=== PATIENT | male | born 1955 | race Caucasian/White ===

== ENCOUNTER 2016-09-13 17:28 | Emergency (ER) | payer SELFPAY ==
--- NOTE | 2016-09-13 18:54 | ED NURSING NOTES ---
Clinical Report - Nurses [facility] [place] [address] 09/13/2016 17:28 Patient: ILIA DALEY TRIAGE Triage time 1729 PM. Acuity: LEVEL 4. Chief Complaint: (Clear to book). Alert. No acute distress. SEPSIS SCREEN: Sepsis Screen. Negative (no infection suspected/documented). LORETTA COMA SCORE: Loretta Coma Scale: 15- eyes open spontaneously (4); best verbal response- oriented x 4 (5); best motor response- obeys commands (6). --17:37 Geovanna Brizuela R.N. 17:29 09/13/16. BP: 148/92. HR: 72. RR: 18. O2 saturation: 97% on room air. Temp: 98.5 F (oral). Pain level now: 0/10. --17:37 Geovanna Brizuela R.N. Weight: 72 kg stated. Height/Length: 66 inches Per Patient. BMI: 25.6. --17:32 Geovanna Brizuela R.N. Medications None. --17:31 Geovanna Brizuela R.N. Medication/allergy information source: the patient. --17:37 Geovanna Brizuela R.N. Allergies No Known Drug Allergy. --17:31 Geovanna Brizuela R.N. History Historian: patient. Arrived in police custody. This started today. No fever, weakness, cough, difficulty breathing or skin rash. Denies muscle aches. Treatment [employer] ATTORNEY: None. SOCIAL HX: Heavy tobacco smoker (cigarette)- less than 1 pack per day. Occasional alcohol use; consumes two liquor. No drug use. No infectious disease exposure. ABUSE ASSESSMENT: No report of abuse. SELF HARM ASSESSMENT: A self harm assessment was performed. The patient answered "no" to the question "Do you have thoughts of harming or killing yourself?" and "Have you recently had thoughts about harming or killing others?". FALL RISK ASSESSMENT: Fall risk assessment completed. No fall risk identified. NUTRITIONAL RISK ASSESSMENT: The nutritional risk assessment revealed no deficiencies. FUNCTIONAL ASSESSMENT: Functional assessment: no impairments noted. LEARNING NEEDS ASSESSMENT: The learning needs assessment revealed no barriers. SKIN INTEGRITY ASSESSMENT: Skin integrity risk assessment completed. No skin integrity risk identified. --17:37 Geovanna Brizuela R.N. PROBLEMS: no known problems. ADDITIONAL SURGERIES: no known surgeries. Interventions ID band on patient. --17:37 Geovanna Brizuela R.N. PHYSICAL ASSESSMENT Ambulatory to room. GENERAL / NEURO / PSYCH: Alert. Oriented X 4. Appears in no acute distress. HEENT: No facial asymmetry noted. Mucous membranes are pink. RESPIRATORY: Respirations not labored. Chest nontender. Breath sounds within normal limits. CVS: Capillary refill less than 2 seconds. Pulses within normal limits. GI / : Abdomen soft and nontender and normal bowel sounds. SKIN: Skin intact. Skin is warm. Normal skin turgor. --17:39 Geovanna Brizuela R.N. NURSING PROGRESS NOTES The initial plan of care for this patient has been created This plan of care was discussed with the patient. Reassurance given. Patient identifiers checked. Call light placed in reach. Side rails up x 1. Bed placed in lowest position. Brakes of bed on. Brakes of chair on. ( Pt Maori speaking, able to communicate with RN Chata (speaks hungarian) aware of situation.). --17:40 Geovanna Brizuela R.N. ( breathalyzer - .229). --18:05 Lara Lange ER Tech1. DISPOSITION / DISCHARGE 18:59 09/13/16. BP: 150/81. HR: 62. RR: 20. O2 saturation: 95%. Temp: 98.2 F. Pain level now: 0/10. --18:59 Jazzmine Yepez R.N. Locked/Released at 09/20/2016 15:05 by Geovanna Brizuela R.N.
--- NOTE | 2016-09-13 18:54 | ED NURSING NOTES ---
Clinical Report - Nurses [facility] [place] [address] 09/13/2016 17:28 Patient: ILIA DALEY TRIAGE Triage time 1729 PM. Acuity: LEVEL 4. Chief Complaint: (Clear to book). Alert. No acute distress. SEPSIS SCREEN: Sepsis Screen. Negative (no infection suspected/documented). LORETTA COMA SCORE: Loretta Coma Scale: 15- eyes open spontaneously (4); best verbal response- oriented x 4 (5); best motor response- obeys commands (6). --17:37 Geovanna Brizuela R.N. 17:29 09/13/16. BP: 148/92. HR: 72. RR: 18. O2 saturation: 97% on room air. Temp: 98.5 F (oral). Pain level now: 0/10. --17:37 Geovanna Brizuela R.N. Weight: 72 kg stated. Height/Length: 66 inches Per Patient. BMI: 25.6. --17:32 Geovanna Brizuela R.N. Medications None. --17:31 Geovanna Brizuela R.N. Medication/allergy information source: the patient. --17:37 Geovanna Brizuela R.N. Allergies No Known Drug Allergy. --17:31 Geovanna Brizuela R.N. History Historian: patient. Arrived in police custody. This started today. No fever, weakness, cough, difficulty breathing or skin rash. Denies muscle aches. Treatment PATIENT ACCESS: None. SOCIAL HX: Heavy tobacco smoker (cigarette)- less than 1 pack per day. Occasional alcohol use; consumes two liquor. No drug use. No infectious disease exposure. ABUSE ASSESSMENT: No report of abuse. SELF HARM ASSESSMENT: A self harm assessment was performed. The patient answered "no" to the question "Do you have thoughts of harming or killing yourself?" and "Have you recently had thoughts about harming or killing others?". FALL RISK ASSESSMENT: Fall risk assessment completed. No fall risk identified. NUTRITIONAL RISK ASSESSMENT: The nutritional risk assessment revealed no deficiencies. FUNCTIONAL ASSESSMENT: Functional assessment: no impairments noted. LEARNING NEEDS ASSESSMENT: The learning needs assessment revealed no barriers. SKIN INTEGRITY ASSESSMENT: Skin integrity risk assessment completed. No skin integrity risk identified. --17:37 Geovanna Brizuela R.N. PROBLEMS: no known problems. ADDITIONAL SURGERIES: no known surgeries. Interventions ID band on patient. --17:37 Geovanna Brizuela R.N. PHYSICAL ASSESSMENT Ambulatory to room. GENERAL / NEURO / PSYCH: Alert. Oriented X 4. Appears in no acute distress. HEENT: No facial asymmetry noted. Mucous membranes are pink. RESPIRATORY: Respirations not labored. Chest nontender. Breath sounds within normal limits. CVS: Capillary refill less than 2 seconds. Pulses within normal limits. GI / : Abdomen soft and nontender and normal bowel sounds. SKIN: Skin intact. Skin is warm. Normal skin turgor. --17:39 Geovanna Brizuela R.N. NURSING PROGRESS NOTES The initial plan of care for this patient has been created This plan of care was discussed with the patient. Reassurance given. Patient identifiers checked. Call light placed in reach. Side rails up x 1. Bed placed in lowest position. Brakes of bed on. Brakes of chair on. ( Pt Azeri speaking, able to communicate with RN Chata (speaks samoan) aware of situation.). --17:40 Geovanna Brizuela R.N. ( breathalyzer - .229). --18:05 Lara Lange ER Tech1. DISPOSITION / DISCHARGE 18:59 09/13/16. BP: 150/81. HR: 62. RR: 20. O2 saturation: 95%. Temp: 98.2 F. Pain level now: 0/10. --18:59 Jazzmine Yepez R.N. Locked/Released at 09/20/2016 15:05 by Geovanna Brizuela R.N.
--- NOTE | 2016-09-13 18:54 | ED ORDER SUMMARY ---
..... Patient: ILIA DALEY OrderSheet [facility] VisitID: [id number] [address] [place] [address] 60y, M Registration Date/Time: 09/13/2016 ORDER SHEET Weight: 72 kg (stated) Allergies: No Known Drug Allergy GENERAL ORDERS: Breathalyzer (17:58 09/13/2016 HBivens A.R.N.P.) (Ack 18:00 LNations ER Tech1) (18:02 NHouse ER Tech1) (18:04 LNations ER Tech1) - (needs blood draw) (17:58 09/13/2016 HBivens A.R.N.P.) (Ack 18:02 NHouse ER Tech1) (15:04 EHassan R.N.) MEDICATION ORDERS: IV FLUIDS: ORDER SHEET NOTES: [Electronically signed by Patricia Maya.R.N.PDavid (21:32 09/13/2016)] [Electronically signed by Geovanna Brizuela R.N. (15:05 09/20/2016)] [Electronically locked/signed by Geovanna Brizuela R.N. (15:09/20/2016)]
--- NOTE | 2016-09-13 18:54 | ED CLINICAL REPORT ---
Clinical Report - Physicians/Mid Levels [facility] [address] [place] [address] 09/13/2016 17:28 Patient: ILIA DALEY Time Seen: 1748. Arrived- In handcuffs. Police present. Historian- patient. HISTORY OF PRESENT ILLNESS Chief Complaint: ( clear to book). This started just prior to arrival and is still present. (pt was pulled over for driving intoxicated, pt denies any pain, injury, illness or issues). Similar symptoms previously: None. Recent medical care: Not recently seen/assessed. REVIEW OF SYSTEMS All systems otherwise negative, except as recorded above. PAST HISTORY Negative. SOCIAL HISTORY Heavy tobacco smoker. Regular alcohol use. No drug use. No recent travel. Is a local resident. FAMILY HISTORY Negative. ADDITIONAL NOTES The nursing notes have been reviewed with agreement regarding the chief complaint, HPI, ROS, PMH and patient medications and allergies. PHYSICAL EXAM Vital Signs: 09/13/2016 17:29 BP: 148/92. HR: 72. RR: 18. O2 saturation: 97%. Temp: 98.5 F. Pain level now: 0/10. Have been reviewed as normal and appear to be correct. Appearance: Alert. No acute distress. (strong etoh breath). Eyes: Pupils equal, round and reactive to light. Eyes normal inspection. Neck: Normal inspection. Neck supple. CVS: Normal heart rate and rhythm. Heart sounds normal. Pulses normal. Respiratory: No respiratory distress. Breath sounds normal. Chest nontender. Abdomen: No visible injury. Soft and nontender. Back: Normal inspection. Skin: Skin warm and dry. Normal skin color. No rash. Normal skin turgor. Extremities: Extremities exhibit normal ROM. No lower extremity edema. Neuro: Oriented X 3. No motor deficit. No sensory deficit. PROGRESS AND PROCEDURES Course of Care: ( breathalyzer - .229). --18:05 Lara Lange ER Tech1. Patient counseled in person regarding the patient's stable condition and diagnosis. 18:54. Differential Diagnosis: Other possible considerations: substance abuse, alcohol intoxication. Above considerations are based on history and physical exam. Differential diagnosis was discussed with patient. Disposition: Discharged home in good and improved condition (18:54). Condition: good and stable. CLINICAL IMPRESSION Normal exam upon presentation, while in the ED and at discharge. Uncomplicated alcohol intoxication. No alcohol intoxication with delirium or alcohol dependence. INSTRUCTIONS (patient is medically cleared to go with police to half-way). Warnings: GENERAL WARNINGS: Return or contact your physician immediately if your condition worsens or changes unexpectedly, if not improving as expected, or if other problems arise. Specifically return if problem worsens. Follow-up: Follow up with your doctor in about one week as needed. Call for an appointment. Summary of care provided to patient. Understanding of the discharge instructions verbalized by patient. (Electronically signed by Patricia Maya A.R.N.P. 09/13/2016 21:32)
--- NOTE | 2016-09-13 18:54 | ED ORDER SUMMARY ---
..... Patient: ILIA DALEY OrderSheet [facility] VisitID: [id number] [address] [place] [address] 60y, M Registration Date/Time: 09/13/2016 ORDER SHEET Weight: 72 kg (stated) Allergies: No Known Drug Allergy GENERAL ORDERS: Breathalyzer (17:58 09/13/2016 HBivens A.R.N.P.) (Ack 18:00 LNations ER Tech1) (18:02 NHouse ER Tech1) (18:04 LNations ER Tech1) - (needs blood draw) (17:58 09/13/2016 HBivens A.R.N.P.) (Ack 18:02 NHouse ER Tech1) (15:04 EHassan R.N.) MEDICATION ORDERS: IV FLUIDS: ORDER SHEET NOTES: [Electronically signed by Patricia Maya.R.N.PDavid (21:32 09/13/2016)] [Electronically signed by Geovanna Brizuela R.N. (15:05 09/20/2016)] [Electronically locked/signed by Geovanna Brizuela R.N. (15:09/20/2016)]
--- NOTE | 2016-09-13 18:54 | ED CLINICAL REPORT ---
Clinical Report - Physicians/Mid Levels [facility] [address] [place] [address] 09/13/2016 17:28 Patient: ILIA DALEY Time Seen: 1748. Arrived- In handcuffs. Police present. Historian- patient. HISTORY OF PRESENT ILLNESS Chief Complaint: ( clear to book). This started just prior to arrival and is still present. (pt was pulled over for driving intoxicated, pt denies any pain, injury, illness or issues). Similar symptoms previously: None. Recent medical care: Not recently seen/assessed. REVIEW OF SYSTEMS All systems otherwise negative, except as recorded above. PAST HISTORY Negative. SOCIAL HISTORY Heavy tobacco smoker. Regular alcohol use. No drug use. No recent travel. Is a local resident. FAMILY HISTORY Negative. ADDITIONAL NOTES The nursing notes have been reviewed with agreement regarding the chief complaint, HPI, ROS, PMH and patient medications and allergies. PHYSICAL EXAM Vital Signs: 09/13/2016 17:29 BP: 148/92. HR: 72. RR: 18. O2 saturation: 97%. Temp: 98.5 F. Pain level now: 0/10. Have been reviewed as normal and appear to be correct. Appearance: Alert. No acute distress. (strong etoh breath). Eyes: Pupils equal, round and reactive to light. Eyes normal inspection. Neck: Normal inspection. Neck supple. CVS: Normal heart rate and rhythm. Heart sounds normal. Pulses normal. Respiratory: No respiratory distress. Breath sounds normal. Chest nontender. Abdomen: No visible injury. Soft and nontender. Back: Normal inspection. Skin: Skin warm and dry. Normal skin color. No rash. Normal skin turgor. Extremities: Extremities exhibit normal ROM. No lower extremity edema. Neuro: Oriented X 3. No motor deficit. No sensory deficit. PROGRESS AND PROCEDURES Course of Care: ( breathalyzer - .229). --18:05 Lara Lange ER Tech1. Patient counseled in person regarding the patient's stable condition and diagnosis. 18:54. Differential Diagnosis: Other possible considerations: substance abuse, alcohol intoxication. Above considerations are based on history and physical exam. Differential diagnosis was discussed with patient. Disposition: Discharged home in good and improved condition (18:54). Condition: good and stable. CLINICAL IMPRESSION Normal exam upon presentation, while in the ED and at discharge. Uncomplicated alcohol intoxication. No alcohol intoxication with delirium or alcohol dependence. INSTRUCTIONS (patient is medically cleared to go with police to [facility]). Warnings: GENERAL WARNINGS: Return or contact your physician immediately if your condition worsens or changes unexpectedly, if not improving as expected, or if other problems arise. Specifically return if problem worsens. Follow-up: Follow up with your doctor in about one week as needed. Call for an appointment. Summary of care provided to patient. Understanding of the discharge instructions verbalized by patient. (Electronically signed by Patricia Maya A.R.N.P. 09/13/2016 21:32)
--- NOTE | 2016-09-20 15:05 | ED MAR SUMMARY ---
..... Medication Administration Record [facility] [address], [place] [id number] Patient: ILIA DALEY Visit ID: [id number] 60y, M Weight: 72.0 kg Height/Length: 66 in BMI: 25.6 ALLERGIES: No Known Drug Allergy
--- NOTE | 2016-09-20 15:05 | ED MAR SUMMARY ---
..... Medication Administration Record [facility] [address] [place], [place] [id number] Patient: ILIA DALEY Visit ID: [id number] 60y, M Weight: 72.0 kg Height/Length: 66 in BMI: 25.6 ALLERGIES: No Known Drug Allergy
--- NOTE | 2016-09-20 15:05 | ED DISCHARGE INSTRUCTIONS ---
Patient: ILIA DAELY General Instructions [facility] VisitID: [id number] [address] [place] [address] 60y, M Registration Date/Time: 09/13/2016 Normal exam upon presentation, while in the ED and at discharge. Uncomplicated alcohol intoxication. No alcohol intoxication with delirium or alcohol dependence. INSTRUCTIONS (patient is medically cleared to go with police to residential). Warnings: GENERAL WARNINGS: Return or contact your physician immediately if your condition worsens or changes unexpectedly, if not improving as expected, or if other problems arise. Specifically return if problem worsens. Follow-up: Follow up with your doctor in about one week as needed. Call for an appointment. Summary of care provided to patient. Understanding of the discharge instructions verbalized by patient. ADDITIONAL INFORMATION Normal Exam [6Yr - Adult] Based on your or your child's exam today, there are no signs of illness or injury. Be assured that the symptoms that worried you are normal. They do not suggest any illness requiring testing or treatment at this time. Home Care: You (or your child) can return to normal activities and diet. If you or your child have new or unusual symptoms not already discussed today, contact the doctor. Follow Up with the doctor for the next routine appointment. For more information: For childrens health information: www.kidshealth.org For adult health information: www.mayoinic.org Alcohol Intoxication Alcohol intoxication occurs when you drink alcohol faster than your liver can remove it from your system. Alcohol intoxication affects your judgment and coordination. Very high blood alcohol levels can cause coma, very slow breathing and even . If you drink alcohol every day, this may gradually cause permanent damage to your liver, brain, heart, pancreas and other organs. Alcohol use during may cause permanent damage to the growing baby. Home Care: Do not drink any more alcohol. DO NOT DRIVE until all effects of the alcohol have worn off. Get lots of rest over the next few days. Drink plenty of water and other non-alcoholic liquids. Try to eat regular meals. If you have been drinking heavily on a daily basis, you may go through alcohol withdrawl. This is also called the shakes or DTs. The usual symptoms last 3 to 4 days and may include nervousness, shakiness, nausea, sweating or sleeplessness. During this time, it is best that you stay with family or friends who can help and support you. You can also admit yourself to a residential detox program. If your symptoms are severe, contact your doctor for medicines to help. Follow Up: If alcohol is causing a problem in your life, these and other organizations can help you: Alcoholics Anonymous offers support through a self-help fellowship. There are no dues or fees. See the Yellow Pages and call for time and place of meetings. www.aa.org Al-Anoasad offers support to families of alcohol users. 885.144.7845 www.al-anon.org National [place] On Alcoholism And Drug Dependence 750-322-6298 www.ncadd.org There are also inpatient or residential alcohol detox programs. Check the Internet or phonebook Yellow Pages under Drug Abuse & Treatment Centers. Get Prompt Medical Attention if any of the following occur: there) You have been given the following additional information: Normal Exam, (Child) (Adult) Alcohol Intoxication (Electronically signed by Patricia Maya A.R.N.P. 09/13/2016 21:32)
--- NOTE | 2016-09-20 15:05 | ED DISCHARGE INSTRUCTIONS ---
Patient: ILIA DALEY General Instructions [facility] VisitID: [id number] [address] [place] [address] 60y, M Registration Date/Time: 09/13/2016 Normal exam upon presentation, while in the ED and at discharge. Uncomplicated alcohol intoxication. No alcohol intoxication with delirium or alcohol dependence. INSTRUCTIONS (patient is medically cleared to go with police to shelter). Warnings: GENERAL WARNINGS: Return or contact your physician immediately if your condition worsens or changes unexpectedly, if not improving as expected, or if other problems arise. Specifically return if problem worsens. Follow-up: Follow up with your doctor in about one week as needed. Call for an appointment. Summary of care provided to patient. Understanding of the discharge instructions verbalized by patient. ADDITIONAL INFORMATION Normal Exam [6Yr - Adult] Based on your or your child's exam today, there are no signs of illness or injury. Be assured that the symptoms that worried you are normal. They do not suggest any illness requiring testing or treatment at this time. Home Care: You (or your child) can return to normal activities and diet. If you or your child have new or unusual symptoms not already discussed today, contact the doctor. Follow Up with the doctor for the next routine appointment. For more information: For childrens health information: www.kidshealth.org For adult health information: www.mayoinic.org Alcohol Intoxication Alcohol intoxication occurs when you drink alcohol faster than your liver can remove it from your system. Alcohol intoxication affects your judgment and coordination. Very high blood alcohol levels can cause coma, very slow breathing and even . If you drink alcohol every day, this may gradually cause permanent damage to your liver, brain, heart, pancreas and other organs. Alcohol use during may cause permanent damage to the growing baby. Home Care: Do not drink any more alcohol. DO NOT DRIVE until all effects of the alcohol have worn off. Get lots of rest over the next few days. Drink plenty of water and other non-alcoholic liquids. Try to eat regular meals. If you have been drinking heavily on a daily basis, you may go through alcohol withdrawl. This is also called the shakes or DTs. The usual symptoms last 3 to 4 days and may include nervousness, shakiness, nausea, sweating or sleeplessness. During this time, it is best that you stay with family or friends who can help and support you. You can also admit yourself to a residential detox program. If your symptoms are severe, contact your doctor for medicines to help. Follow Up: If alcohol is causing a problem in your life, these and other organizations can help you: Alcoholics Anonymous offers support through a self-help fellowship. There are no dues or fees. See the Yellow Pages and call for time and place of meetings. www.aa.org Al-Anoasad offers support to families of alcohol users. 399.405.5020 www.al-anon.org National [place] On Alcoholism And Drug Dependence 558-433-3795 www.ncadd.org There are also inpatient or residential alcohol detox programs. Check the Internet or phonebook Yellow Pages under Drug Abuse & Treatment Centers. Get Prompt Medical Attention if any of the following occur: there) You have been given the following additional information: Normal Exam, (Child) (Adult) Alcohol Intoxication (Electronically signed by Patricia Maya A.R.N.P. 09/13/2016 21:32)
--- NOTE | 2016-09-20 15:05 | ED MED RECONCILIATION SUMMARY ---
Patient: DELONMARINA ILIA OSUNA Medication Reconciliation Report [facility] VisitID: [id number] [address] [place] [address] 60y, M Registration Date/Time: 09/13/2016 Weight: 72 kg Height/Length: 66 in. BMI: 25.6 ALLERGIES: No Known Drug Allergy The patient's Home Medications are listed below: NONE. The source(s) of the original Home Medication information: patient The following Medications were given to the patient in the Emergency Department: None. The following Medications were prescribed to the patient: None.
--- NOTE | 2016-09-20 15:05 | ED MED RECONCILIATION SUMMARY ---
Patient: DELONMARINA ILIA OSUNA Medication Reconciliation Report [facility] VisitID: [id number] [address] [place] [address] 60y, M Registration Date/Time: 09/13/2016 Weight: 72 kg Height/Length: 66 in. BMI: 25.6 ALLERGIES: No Known Drug Allergy The patient's Home Medications are listed below: NONE. The source(s) of the original Home Medication information: patient The following Medications were given to the patient in the Emergency Department: None. The following Medications were prescribed to the patient: None.
== END 2016-09-13 19:05 ==
LOC: ED SRH 17:28
DX: F10.120 Alcohol abuse with intoxication, uncomplicated (principal); F17.210 Nicotine dependence, cigarettes, uncomplicated